=== PATIENT | female | born 1980 | race American Indian/Alaskan Native ===

== ENCOUNTER 2018-01-12 21:45 | Emergency (ER) | payer OTHER ==
[2018-01-12] MEDS ORDERED: PEPCID ONE (22:24)
[2018-01-12] MEDS ORDERED: SOLU-Medrol ONE (22:25)
[2018-01-12] MEDS ORDERED: DECADRON ONE (22:26)
[2018-01-12] MEDS ORDERED: DECADRON IM ONE (22:40)
[2018-01-12] MEDS ORDERED: PEPCID PO ONE (22:41)
--- NOTE | 2018-01-13 00:01 | Emergency Department Report ---
HPI - General Chief Complaint: Allergic Reaction Time Seen by Provider: 01/12/18 23:43 - HPI HPI: . 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 to eating shrimp tonight at itching and burning 15 minutes after eating shrimp is no shortness of breath no wheezing or stridor there is no shortness of breath no wheezing or stridor no nausea vomiting symptoms rated at 3/10 at this time patient has had 50mg of Benadryl and 60lmg of prednisone and 20 mg Pepcid in ED patient states symptoms are resolved ED Past Medical Hx - Past Medical History Hx Asthma: Yes Additional medical history: left breast tumor - Surgical History Past Surgical History?: No - Social History Smoking Status: Never Smoker Substance Use Type: None - Medications Home Medications: Home Medications Medication Instructions Recorded Confirmed Last Taken Type Albuterol Sulfate [Ventolin HFA] 2 puff IH Q4H PRN #1 hfa.aer.ad 10/25/14 Unknown Rx LORazepam [Ativan] 1 mg PO QHS #12 tab 10/25/14 Unknown Rx predniSONE [Deltasone] 40 mg PO QDAY #10 tab 10/25/14 Unknown Rx EPINEPHrine [Epipen 2-Isacc] 0.3 mg IJ ONCE PRN #1 each 01/13/18 Unknown Rx Metoclopramide [Reglan] 10 mg PO ACHS 7 Days #30 tablet 01/13/18 Unknown Rx diphenhydrAMINE [Benadryl CAP] 25 mg PO Q6HR 7 Days #30 capsule 01/13/18 Unknown Rx predniSONE [Deltasone] 40 mg PO DAILY 5 Days #10 tablet 01/13/18 Unknown Rx ED Review of Systems ROS: Stated complaint: ALLERGIC REACTION Other details as noted in HPI Constitutional: denies: chills, fever Eyes: denies: eye pain, eye discharge, vision change ENT: denies: ear pain, throat pain Respiratory: cough. denies: shortness of breath, wheezing Cardiovascular: denies: chest pain, palpitations Endocrine: no symptoms reported Gastrointestinal: denies: abdominal pain, nausea, diarrhea Genitourinary: denies: urgency, dysuria, discharge Musculoskeletal: denies: back pain, joint swelling, arthralgia Skin: pruritus. denies: rash, lesions Neurological: denies: headache, weakness, paresthesias Psychiatric: denies: anxiety, depression Hematological/Lymphatic: denies: easy bleeding, easy bruising Physical Exam - Physical Exam Vital Signs: Vital Signs 01/12/18 22:33 Temperature 98.6 F Pulse Rate 102 H Respiratory 16 Rate Blood Pressure 117/79 O2 Sat by Pulse 100 Oximetry General: Patient appears well in no acute distress well nourished well hydrated Physical Exam: Patient no acute distress respirations are nonlabored even airway is patent no stridor no lesions no exudate also clear bilateral lobes there is no abdominal pain no nausea vomiting patient is tolerating by mouth intake without symptoms ED Course Vital Signs 01/12/18 22:33 Temperature 98.6 F Pulse Rate 102 H Respiratory 16 Rate Blood Pressure 117/79 O2 Sat by Pulse 100 Oximetry - Reevaluation(s) Reevaluation #1: Self administer Benadryl prednisone Pepcid and ED 01/13/18 00:00 ED Medical Decision Making - Medical Decision Making This is a reaction to seafood shrimp discussed allergies with patient and prophylactic treatment with epipen discussed the need to continue to take prednisone and Benadryl Reglan 5-7 days avoiding shrimp patient verbalizes agreement and understanding of same patient will be DC'd home in stable condition at this time Critical care attestation.: If time is entered above; I have spent that time in minutes in the direct care of this critically ill patient, excluding procedure time. ED Disposition Clinical Impression: Allergic reaction to food Qualifiers: Encounter type: initial encounter Qualified Code(s): T78.1XXA - Other adverse food reactions, not elsewhere classified, initial encounter Disposition: DC-01 TO HOME OR SELFCARE Is pt being admited?: No Does the pt Need Aspirin: No Condition: Good Instructions: Food Allergy (ED), Allergies (ED), Epinephrine (Injection) Prescriptions: diphenhydrAMINE [Benadryl CAP] 25 mg PO Q6HR 7 Days #30 capsule EPINEPHrine [Epipen 2-Isacc] 0.3 mg IJ ONCE PRN #1 each PRN Reason: severe allergy symptoms Metoclopramide [Reglan] 10 mg PO ACHS 7 Days #30 tablet predniSONE [Deltasone] 40 mg PO DAILY 5 Days #10 tablet Referrals: PRIMARY CARE, [Primary Care Provider] - 3-5 Days [facility] [Outside] - 3-5 Days Forms: Work/School Release Form(ED) Time of Disposition: 00:06
[2018-01-13 00:55] VITALS: BP 111/77
== END 2018-01-13 00:20 | disposition home or self-care (01) ==
LOC: ED 21:45
DX: T78.1XXA Other adverse food reactions, not elsewhere classified, initial encounter (principal); J45.909 Unspecified asthma, uncomplicated; Z91.013 Allergy to seafood; X58.XXXA Exposure to other specified factors, initial encounter
CPT/HCPCS: 96372; 99283; J1100; J2930